=== PATIENT | male | born 1970 | race Caucasian/White ===

== ENCOUNTER 2018-09-28 06:06 | Inpatient (IN) | payer SELFPAY ==
[2018-09-28] MEDS ORDERED: NORMAL SALINE 1000 ML 1,000 ML IV ONE ×3 (07:30→15:20)
--- NOTE | 2018-09-28 07:33 | ER Document Report ---
ED Medical Screen (RME) - General Chief Complaint: Abdominal Pain Stated Complaint: ABDOMINAL AND BACK PAIN Time Seen by Provider: 09/28/18 07:26 Notes: 48-year-old male with chief complaint of abdominal pain for the past 2 almost 3 days. He states that when it started he also had a fever of 101 F. He states pain is in the mid to lower right abdomen with radiation around to the back and the lower part of the back. He denies history of kidney stones, denies hematuria, denies dysuria. Pain worsens with eating. Denies any abdominal surgeries or diagnosed medical problems. TRAVEL OUTSIDE OF THE [place] IN LAST 30 DAYS: No Physical Exam - Vital signs Vitals: Temp Pulse Resp BP Pulse Ox 97.9 F 102 H 16 142/88 H 98 09/28/18 06:16 09/28/18 06:16 09/28/18 06:16 09/28/18 06:16 09/28/18 06:16 - Abdominal Tenderness: Tender - Tender throughout the abdomen in the epigastric, right upp er quadrant, mid abdomen, mildly in the lower abdomen. Nonspecific. No guarding or rigidity. Course - Re-evaluation Re-evalutation: Nonspecific abdominal exam with some tenderness but without guarding. Nontoxic in appearance. Work-up pending. I have greeted and performed a rapid initial assessment of this patient. A comprehensive ED assessment and evaluation of the patient, analysis of test results and completion of the medical decision making process will be conducted by additional ED providers. - Vital Signs Vital signs: Temp Pulse Resp BP Pulse Ox 97.9 F 102 H 16 142/88 H 98 09/28/18 06:16 09/28/18 06:16 09/28/18 06:16 09/28/18 06:16 09/28/18 06:16
--- NOTE | 2018-09-28 08:02 | ER Document Report ---
ED GI/ - General Chief Complaint: Abdominal Pain Stated Complaint: ABDOMINAL AND BACK PAIN Time Seen by Provider: 09/28/18 07:26 Notes: 48-year-old male with chief complaint of abdominal pain for the past 2 almost 3 days. He states that when it started he also had a fever of 101 F. He states pain is in the mid to lower right abdomen with radiation around to the back and the lower part of the back. He denies history of kidney stones, denies hematuria, denies dysuria. Pain worsens with eating. Denies any abdominal surgeries or diagnosed medical problems. Describes the pain as achy and rates it as severe. Nothing else makes better or worse TRAVEL OUTSIDE OF THE [place] IN LAST 30 DAYS: No - Related Data Allergies/Adverse Reactions: No Known Allergies Allergy (Unverified 09/28/18 10:51) Past Medical History - Social History Smoking Status: Unknown if Ever Smoked Family History: None Review of Systems - Review of Systems Constitutional: denies: Chills, Fever EENT: denies: Throat pain Cardiovascular: denies: Chest pain, Dyspnea Gastrointestinal: Abdominal pain, Nausea. denies: Diarrhea, Vomiting Neurological/Psychological: denies: Headaches, Tingling -: Yes All other systems reviewed and negative Physical Exam - Vital signs Vitals: Temp Pulse Resp BP Pulse Ox 97.9 F 102 H 16 142/88 H 98 09/28/18 06:16 09/28/18 06:16 09/28/18 06:16 09/28/18 06:16 09/28/18 06:16 - Notes Notes: GENERAL_APPEARANCE: well_nourished, alert, cooperative VITALS: reviewed, see vital signs table. HEAD: no_swelling\tenderness on the head. EYES: PERRL, EOMI, conjunctiva_clear. NOSE: no_nasal_discharge. MOUTH: (-)decreased moisture. THROAT: no_tonsilar_inflammation, no_airway_obstruction. no_lymphadenopathy NECK: supple, no_neck_tenderness, (-)thyromegaly. BACK: Right CVA_back_tenderness. CHEST_WALL: no_chest_tenderness. LUNGS: no_wheezing, no_rales, no_rhonchi, (-)accessory muscle use, good air exchange bilateral. HEART: normal_rate, normal_rhythm, normal_S1, normal_S2, (-)S3, (-)S4, no_murmur, no_rub. ABDOMEN: normal_BS, soft, lower quadrant_abd_tenderness, (-)guarding, (- )rebound, no_organomegaly, no_abd_masses. EXTREMITIES: good pulses in all_extremities, no_swelling\tenderness in the extremities, no_edema. SKIN: warm, dry, good_color, no_rash. MENTAL_STATUS: speech_clear, oriented_X_3, normal_affect, responds_appropriately to questions. NEURO: Neg Motor or Sensory Deficits on exam, CN 2-12 intact, DTR 2+ symmetric x 4, No cerbellar signs Course - Re-evaluation Re-evalutation: 09/28/18 08:01 48-year-old male presents the emerge from with right-sided abdominal pain. Patient stated goes from his right flank to his right lower quadrant and back. He has no history of stones denies hematuria or dysuria. Did have a fever 101 at home. Has had chills. Some nausea denies vomiting. Full work-up for pyelonephritis versus stone versus appendicitis. 09/28/18 10:36 CT is reported free air. There is some thickening along the duodenum concerning for perforated duodenal ulcer. I will consult surgery. Patient was given broad-spectrum antibiotics. We will give a dose of Protonix. 09/28/18 12:41 On-call surgeon was in OR all morning. He is coming to evaluate the patient. Patient remained stable at this time. 09/28/18 14:08 The patient ate a candy bar prior to surgical evaluation. He was n.p.o. Surgery has the patient drinking contrast. - Vital Signs Vital signs: Temp Pulse Resp BP Pulse Ox 98.2 F 73 16 112/66 96 09/28/18 10:58 09/28/18 10:58 09/28/18 10:58 09/28/18 10:58 09/28/18 10:58 - Laboratory Result Diagrams: 09/28/18 08:06 09/28/18 08:06 Laboratory results interpreted by me: 09/28/18 09/28/18 09/28/18 07:44 08:06 08:06 WBC 16.5 H Seg Neutrophils % 82.8 H Lymphocytes % 9.5 L Absolute Neutrophils 13.6 H Sodium 136.4 L Chloride 96 L BUN 22 H Direct Bilirubin 0.5 H Lipase 576.8 H Urine Protein 100 H Urine Blood MODERATE H Urine Urobilinogen 2.0 H - Diagnostic Test Radiology reviewed: Reports reviewed Radiology results interpreted by me: 09/28/18 10:36 Abdomen/Pelvis CT 09/28/18 07:59 IMPRESSION: Retroperitoneal air. Mild thickening of the duodenum suspect perforated duodenum ulcer. No focal abscess. Discharge - Discharge Clinical Impression: Perforated abdominal viscus Condition: Fair Disposition: ADMITTED INPATIENT Admitting Provider: Surgicalist Unit Admitted: OR
[2018-09-28 08:05] LABS: APPEARANCE,URINE CLEAR; BILIRUBIN,URINE NEGATIVE (NEGATIVE); COLOR,URINE YELLOW; GLUCOSE, URINE NEGATIVE (NEGATIVE); KETONES,URINE NEGATIVE (NEGATIVE); LEUKOCYTE ESTERASE,URINE NEGATIVE (NEGATIVE); NITRITE,URINE NEGATIVE (NEGATIVE); PROTEIN,URINE 100 mg/dL (NEGATIVE); URINE SPECIFIC GRAVITY 1.018
[2018-09-28 08:27] LABS: ABSOLUTE BASOPHILS # (AUTO) 0.2 10^3/uL (0.0-0.2); ABSOLUTE EOSINOPHILS # (AUTO) 0.1 10^3/uL (0.0-0.6); ABSOLUTE LYMPHOCYTES (AUTO) 1.6 10^3/uL (0.5-4.7); ABSOLUTE NEUT (AUTO) 13.6 10^3/uL (1.7-8.2); EOSINOPHILS % (AUTO) 0.5 % (0-6); HEMATOCRIT 42.1 % (37.9-51.0); HEMOGLOBIN 14.4 g/dL (13.5-17.0); LYMPHOCYTES % (AUTO) 9.5 % (13-45); MEAN CORPUSCULAR HEMOGLOBIN 27.5 pg (27.0-33.4); MEAN CORPUSCULAR HGB CONC 34.1 g/dL (32.0-36.0); MEAN CORPUSCULAR VOLUME 81 fl (80-97); MONOCYTES % (AUTO) 6.2 % (3-13); PLATELET COUNT 244 10^3/uL (150-450); RED BLOOD COUNT 5.22 10^6/uL (4.35-5.55); RED CELL DISTRIBUTION WIDTH 13.8 % (11.5-14.0); SEGMENTED NEUTROPHILS % (AUTO) 82.8 % (42-78); TOTAL CELLS COUNTED % (AUTO) 100 %; WHITE BLOOD COUNT 16.5 10^3/uL (4.0-10.5)
[2018-09-28 08:50] LABS: ALANINE AMINOTRANSFERASE 28 U/L (21-72); ALBUMIN 3.6 g/dL (3.5-5.0); ALKALINE PHOSPHATASE 82 U/L (38-126); ANION GAP 11 (5-19); ASPARTATE AMINO TRANSFERASE 25 U/L (17-59); BILIRUBIN,DIRECT 0.5 mg/dL (0.0-0.4); BILIRUBIN,TOTAL 0.9 mg/dL (0.2-1.3); BLOOD UREA NITROGEN 22 mg/dL (7-20); CALCIUM 8.7 mg/dL (8.4-10.2); CARBON DIOXIDE 29 mmol/L (22-30); CHLORIDE 96 mmol/L (98-107); GLUCOSE 102 mg/dL (75-110); POTASSIUM 3.9 mmol/L (3.6-5.0); TOTAL PROTEIN 6.7 g/dL (6.3-8.2)
[2018-09-28] MEDS ORDERED: PIPERACILLIN/TAZOBACTAM 3.375 GM VIAL IV ONE (09:19)
--- NOTE | 2018-09-28 10:27 | RADIOLOGY REPORT (SQ) ---
EXAM DESCRIPTION: CT ABD/PELVIS NO ORAL OR IV COMPLETED DATE/TIME: 09/28/2018 9:03 am REASON FOR STUDY: abd pain COMPARISON: None. TECHNIQUE: CT scan of the abdomen and pelvis performed without intravenous or oral contrast. Images reviewed with lung, soft tissue, and bone windows. Reconstructed coronal and sagittal MPR images revi ewed. All images stored on PACS. All CT scanners at this facility use dose modulation, iterative reconstruction, and/or weight based d osing when appropriate to reduce radiation dose to as low as reasonably achievable (ALARA). [facility]: Dose Right [facility]: CareDose [facility]: Dose Right [facility]: Teradose 4D [facility]: Smart [employer] RADIATION DOSE: CT Rad equipment meets quality standard of care and radiation dose reduction techniq ues were employed. CTDIvol: 9.9 mGy. DLP: 568 mGy-cm.mGy. LIMITATIONS: None. FINDINGS: LOWER CHEST: No significant findings. No nodules or infiltrates. NON-CONTRASTED LIVER, SPLEEN, ADRENALS: Evaluation limited by lack of IV contrast. No identified sign ificant masses. PANCREAS: No masses. No peripancreatic inflammatory changes. GALLBLADDER: No identified stones by CT criteria. No inflammatory changes to suggest cholecystitis. RIGHT KIDNEY AND URETER: No suspicious masses. Assessment limited by lack of IV contrast. There is a small nonobstructing right renal stone. No hydronephrosis or hydroureter. LEFT KIDNEY AND URETER: No suspicious masses. Assessment limited by lack of IV contrast. No signifi cant calcifications. No hydronephrosis or hydroureter. AORTA AND RETROPERITONEUM: Aorta is unremarkable in appearance there is retroperitoneal air. There i s inflammation surrounding the duodenum suspect perforated duodenum ulcer. No focal fluid collection . BOWEL AND PERITONEAL CAVITY: As above. Scattered diverticuli. No acute diverticulitis. APPENDIX: Normal. PELVIS, BLADDER, AND ABDOMINAL WALL:No abnormal masses. No free fluid. Bladder normal. BONES: No significant findings. OTHER: No other significant finding. IMPRESSION: Retroperitoneal air. Mild thickening of the duodenum suspect perforated duodenum ulcer. No focal abscess. COMMENT: Pertinent findings on the imaging study reported as a CRITICAL RESULT to DAVID DUARTE MD [id number] hours. On 09/28/2018. Category of Critical Result: Retroperitoneal air. Quality ID # [id number]: Final reports with documentation of one or more dose reduction techniques (e.g., Au tomated exposure control, adjustment of the mA and/or kV according to patient size, use of iterative reconstruction technique) TECHNICAL DOCUMENTATION: JOB ID: [id number] [employer]- All Rights Reserved Reading location - IP/workstation name: [email or web address]
[2018-09-28] MEDS ORDERED: PANTOPRAZOLE SODIUM 40 MG VIAL IV ONE (10:37)
[2018-09-28] MEDS ORDERED: ONDANSETRON HCL INJ/PF 4 MG/2 ML SDV IV PRN (14:18)
--- NOTE | 2018-09-28 14:24 | PDOC H&P ---
History of Present Illness Admission Date/PCP: September 28, 2018 Patient complains of: Abdominal pain History of Present Illness: ANITA LIANG is a 48 year old male Patient presents to the emergency department with a 3-day history of abdominal pain, anorexia and bloating. Pain started in the right lower quadrant is persisted but spread somewhat to the epigastric region. Because of persisting pain the patient was seen in the emergency department after arriving by ground rescue. Patient is found to have right lower quadrant tenderness. He had a leukocytosis of 16,000. He underwent CT scan of the abdomen and pelvis without oral and without IV contrast which showed retroperitoneal air. Surgery was consulted for possible visceral perforation. Patient initially wanted to go home but we encouraged him to stay for further evaluation. Once evaluated, the patient was advised admission, and informed he may require exploratory surgery. Past Medical History Medical History: None Past Surgical History Past Surgical History: None Social History Smoking Status: Unknown if Ever Smoked Family History Family History: None Parental Family History Reviewed: Yes Children Family History Reviewed: Yes Sibling(s) Family History Reviewed.: Yes Medication/Allergy Allergies/Adverse Reactions: No Known Allergies Allergy (Unverified 09/28/18 10:51) Review of Systems Constitutional: PRESENT: as per HPI Eyes: ABSENT: visual disturbances Ears: ABSENT: hearing changes Cardiovascular: ABSENT: chest pain, dyspnea on exertion, edema, orthropnea, palpitations Respiratory: ABSENT: cough, hemoptysis Gastrointestinal: PRESENT: as per HPI Genitourinary: ABSENT: dysuria, hematuria Musculoskeletal: ABSENT: joint swelling Integumentary: ABSENT: rash, wounds Neurological: ABSENT: abnormal gait, abnormal speech, confusion, dizziness, focal weakness, syncope Hematologic/Lymphatic: ABSENT: easy bleeding, easy bruising Physical Exam Vital Signs: Temp Pulse Resp BP Pulse Ox 98.2 F 73 16 112/66 96 09/28/18 10:58 09/28/18 10:58 09/28/18 10:58 09/28/18 10:58 09/28/18 10:58 Intake & Output 09/27/18 09/28/18 09/29/18 06:59 06:59 06:59 Intake Total 1999 Balance 1999 Weight 86.4 kg Patient got up to move around in the room, then laid down on the gurney per request General appearance: PRESENT: mild distress Head exam: PRESENT: normocephalic Eye exam: PRESENT: EOMI Mouth exam: PRESENT: dry mucosa Neck exam: PRESENT: full ROM Respiratory exam: PRESENT: clear to auscultation herb Cardiovascular exam: PRESENT: RRR, rubs Pulses: PRESENT: normal carotid pulses, normal radial pulses, normal femoral pulses, normal dorsalis pedis pul GI/Abdominal exam: PRESENT: other - Abdomen is soft, minimally distended. There is guarding in the periumbilical region: Patient has some back tenderness. Extremities exam: PRESENT: full ROM Musculoskeletal exam: PRESENT: ambulatory Neurological exam: PRESENT: awake, oriented to person, oriented to place Psychiatric exam: PRESENT: appropriate affect Results Laboratory Results: 09/28/18 08:06 09/28/18 08:06 09/28/18 09/28/18 09/28/18 07:44 08:06 08:06 WBC 16.5 H RBC 5.22 Hgb 14.4 Hct 42.1 MCV 81 MCH 27.5 MCHC 34.1 RDW 13.8 Plt Count 244 Seg Neutrophils % 82.8 H Lymphocytes % 9.5 L Monocytes % 6.2 Eosinophils % 0.5 Basophils % 1.0 Absolute Neutrophils 13.6 H Absolute Lymphocytes 1.6 Absolute Monocytes 1.0 Absolute Eosinophils 0.1 Absolute Basophils 0.2 Sodium 136.4 L Potassium 3.9 Chloride 96 L Carbon Dioxide 29 Anion Gap 11 BUN 22 H Creatinine 0.82 Est GFR ( Amer) > 60 Est GFR (Non-Af Amer) > 60 Glucose 102 Calcium 8.7 Total Bilirubin 0.9 AST 25 ALT 28 Alkaline Phosphatase 82 Total Protein 6.7 Albumin 3.6 Lipase 576.8 H Urine Color YELLOW Urine Appearance CLEAR Urine pH 5.0 Ur Specific [place] 1.018 Urine Protein 100 H Urine Glucose (UA) NEGATIVE Urine Ketones NEGATIVE Urine Blood MODERATE H Urine Nitrite NEGATIVE Ur Leukocyte Esterase NEGATIVE Urine WBC (Auto) 2 Urine RBC (Auto) 5 Impressions: Abdomen/Pelvis CT 09/28/18 07:59 IMPRESSION: Retroperitoneal air. Mild thickening of the duodenum suspect perforated duodenum ulcer. No focal abscess. Assessment & Plan - Diagnosis (1) Perforated abdominal viscus Is this a current diagnosis for this admission?: Yes Plan: Impression: Findings are most consistent with a acute perforated viscus based on CT scan findings moderate to extensive amount of retroperitoneal free air, and leukocytosis; currently the patient looks quite well and belies findings on imaging. Etiologies include perforated ulcer disease, perforated retro- peritoneal sigmoid diverticulum or perforated appendicitis. Recommendations: 1. We will admit to surgical service, keep n.p.o. on IV fluids and intravenous antibiotics empirically. 2. We will have patient drink oral contrast and repeat CT scan of the abdomen and pelvis to further delineate pathoanatomy. I explained to patient he may require exploratory surgery. - Time Time Spent: 50 to 70 Minutes Critical Time spent with patient: 15-24 minutes Medications reviewed and adjusted accordingly: Yes Anticipated discharge: Home - Inpatient Certification Based on my medical assessment, after consideration of the patient's comorbidities, presenting symptoms, or acuity I expect that the services needed warrant INPATIENT care.: Yes I certify that my determination is in accordance with my understanding of Medicare's requirements for reasonable and necessary INPATIENT services [42 CFR 412.3e].: Yes Medical Necessity: Need For IV Fluids, Need for Pain Control, Need for IV Antibiotics, Need for Surgery
--- NOTE | 2018-09-28 17:54 | RADIOLOGY REPORT (SQ) ---
EXAM DESCRIPTION: CT ABD/PELVIS WITH IV ORAL COMPLETED DATE/TIME: 09/28/2018 4:25 pm REASON FOR STUDY: free in abdomen COMPARISON: 09/28/2018 TECHNIQUE: CT scan of the abdomen and pelvis performed using helical scanning technique with dynamic intravenous contrast injection. Oral contrast. Images reviewed with lung, soft tissue, and bone win dows. Reconstructed coronal and sagittal MPR images reviewed. Delayed images for evaluation of the ur inary system also acquired. All images stored on PACS. All CT scanners at this facility use dose modulation, iterative reconstruction, and/or weight based d osing when appropriate to reduce radiation dose to as low as reasonably achievable (ALARA). [facility]: Dose Right [facility]: CareDose [facility]: Dose Right [facility]: Teradose 4D [facility]: STYLHUNT CONTRAST TYPE AND DOSE: contrast/concentration: Isovue 350.00 mg/ml; Total Contrast Delivered: 98.0 ml; Total Saline Delivered: 72.0 ml RENAL FUNCTION: BUN 20 creatinine 0.82 RADIATION DOSE: CT Rad equipment meets quality standard of care and radiation dose reduction techniq ues were employed. CTDIvol: 11.3 - 15.8 mGy. DLP: 1506 mGy-cm.. LIMITATIONS: None. FINDINGS: LOWER CHEST: No significant findings. No nodules or infiltrates. LIVER: Normal size. No masses. No dilated ducts. SPLEEN: Normal size. No focal lesions. PANCREAS: No masses. No significant calcifications. No adjacent inflammation or peripancreatic fluid collections. Pancreatic duct not dilated. GALLBLADDER: No identified stones by CT criteria. No inflammatory changes to suggest cholecystitis. ADRENAL GLANDS: No significant masses or asymmetry. RIGHT KIDNEY AND URETER: No solid masses. No significant calcifications. No hydronephrosis or hyd roureter. LEFT KIDNEY AND URETER: No solid masses. No significant calcifications. No hydronephrosis or hydr oureter. AORTA AND VESSELS: No aneurysm. No dissection. Renal arteries, SMA, celiac without stenosis. RETROPERITONEUM: Once again there is to retroperitoneal free air. Inflammatory changes are suggested in the duodenum. The free air extends cephalad to the region of the gastroesophageal junction. BOWEL AND PERITONEAL CAVITY: There is no bowel obstruction. There are inflammatory changes associate d with the sigmoid colon. APPENDIX: Not identified. PELVIS: No mass. No free fluid. Normal bladder. ABDOMINAL WALL: No masses. No hernias. BONES: No significant or acute findings. OTHER: No other significant finding. IMPRESSION: Retroperitoneal free air. Possible etiologies: Perforated duodenal ulcer, distal esoph ageal rupture, or perforated sigmoid diverticulitis. TECHNICAL DOCUMENTATION: JOB ID: [id number] Quality ID # [id number]: Final reports with documentation of one or more dose reduction techniques (e.g., Au tomated exposure control, adjustment of the mA and/or kV according to patient size, use of iterative reconstruction technique) 2010 [employer]- All Rights Reserved Reading location - IP/workstation name: [email or web address]
[2018-09-28] MEDS: RINGERS SOLUTION,LACTATED 1,000 ML IV PRN (18:32)
[2018-09-28] MEDS: PIPERACILLIN SODIUM/TAZOBACTAM 3.375 GM in NORMAL SALINE 100 ML IV SCH (21:55)
[2018-09-29 05:16] LABS: ABSOLUTE BASOPHILS # (AUTO) 0.1 10^3/uL (0.0-0.2); ABSOLUTE EOSINOPHILS # (AUTO) 0.2 10^3/uL (0.0-0.6); ABSOLUTE LYMPHOCYTES (AUTO) 1.7 10^3/uL (0.5-4.7); ABSOLUTE MONOCYTES (AUTO) 0.7 10^3/uL (0.1-1.4); ABSOLUTE NEUT (AUTO) 6.8 10^3/uL (1.7-8.2); BASOPHILS % (AUTO) 0.6 % (0-2); EOSINOPHILS % (AUTO) 2.1 % (0-6); HEMATOCRIT 36.5 % (37.9-51.0); HEMOGLOBIN 12.5 g/dL (13.5-17.0); LYMPHOCYTES % (AUTO) 17.7 % (13-45); MEAN CORPUSCULAR HEMOGLOBIN 27.7 pg (27.0-33.4); MEAN CORPUSCULAR HGB CONC 34.3 g/dL (32.0-36.0); MEAN CORPUSCULAR VOLUME 81 fl (80-97); MONOCYTES % (AUTO) 7.5 % (3-13); PLATELET COUNT 229 10^3/uL (150-450); RED BLOOD COUNT 4.53 10^6/uL (4.35-5.55); RED CELL DISTRIBUTION WIDTH 13.5 % (11.5-14.0); SEGMENTED NEUTROPHILS % (AUTO) 72.1 % (42-78); TOTAL CELLS COUNTED % (AUTO) 100 %; WHITE BLOOD COUNT 9.5 10^3/uL (4.0-10.5)
[2018-09-29] MEDS: PIPERACILLIN SODIUM/TAZOBACTAM 3.375 GM in NORMAL SALINE 100 ML IV SCH ×3 (05:38→21:39)
[2018-09-29] MEDS: KETOROLAC TROMETHAMINE INJ/PF 30 MG/1 ML SDV IV PRN ×2 (10:41→23:55)
[2018-09-29] MEDS: RINGERS SOLUTION,LACTATED 1,000 ML IV PRN ×2 (10:42→21:39)
[2018-09-29] MEDS: PANTOPRAZOLE SODIUM 40 MG VIAL IV SCH ×2 (13:12→21:39)
[2018-09-29] MEDS: NICOTINE 21 MG/24 HR PATCH.TD24 TD SCH (13:13)
--- NOTE | 2018-09-29 18:17 | PDOC PROGRESS REPORT ---
Subjective Progress Note for:: 09/29/18 Subjective:: less abdominal pains. More at the LUQ Reason For Visit: PERFRATED ABDOMINAL VISCUS Physical Exam Vital Signs: Temp Pulse Resp BP Pulse Ox 99.1 F 62 19 118/66 97 09/29/18 16:00 09/29/18 16:00 09/29/18 16:00 09/29/18 16:00 09/29/18 16:00 Intake & Output 09/28/18 09/29/18 09/30/18 06:59 06:59 06:59 Intake Total 3100 1200 Balance 3100 1200 Weight 86.4 kg 69.4 kg Exam: abdomen soft with mild tenderness LUQ. Not distended Results Laboratory Results: 09/29/18 04:17 09/28/18 08:06 09/29/18 04:17 WBC 9.5 RBC 4.53 Hgb 12.5 L Hct 36.5 L MCV 81 MCH 27.7 MCHC 34.3 RDW 13.5 Plt Count 229 Seg Neutrophils % 72.1 Lymphocytes % 17.7 Monocytes % 7.5 Eosinophils % 2.1 Basophils % 0.6 Absolute Neutrophils 6.8 Absolute Lymphocytes 1.7 Absolute Monocytes 0.7 Absolute Eosinophils 0.2 Absolute Basophils 0.1 Impressions: Abdomen/Pelvis CT 09/28/18 07:59 IMPRESSION: Retroperitoneal air. Mild thickening of the duodenum suspect perforated duodenum ulcer. No focal abscess. Assessment & Plan - Diagnosis (1) free air retroperitoneal area Is this a current diagnosis for this admission?: Yes - Time Time Spent with patient: 15-24 minutes - Inpatient Certification Medical Necessity: Need For IV Fluids, Need for IV Antibiotics - Plan Summary Plan Summary: Since possible source of retroperitoneal free air is from Duodenal perforation or sigmoid perforation. An attempt to place NGT was done if perf from Dudenal ulcer however, patient unable to tolerate placement. Will keep him NPO for now and hydrate. Continue IV antibiotics Had CT with po contrast which did not show duodenal perforation Repeat WBC is now normal Will repeat again in am
[2018-09-30] MEDS: PIPERACILLIN SODIUM/TAZOBACTAM 3.375 GM in NORMAL SALINE 100 ML IV SCH ×3 (06:14→21:52)
[2018-09-30 06:33] LABS: ABSOLUTE BASOPHILS # (AUTO) 0.1 10^3/uL (0.0-0.2); ABSOLUTE EOSINOPHILS # (AUTO) 0.2 10^3/uL (0.0-0.6); ABSOLUTE LYMPHOCYTES (AUTO) 1.5 10^3/uL (0.5-4.7); ABSOLUTE MONOCYTES (AUTO) 0.7 10^3/uL (0.1-1.4); ABSOLUTE NEUT (AUTO) 6.3 10^3/uL (1.7-8.2); BASOPHILS % (AUTO) 0.7 % (0-2); EOSINOPHILS % (AUTO) 2.3 % (0-6); HEMATOCRIT 38.1 % (37.9-51.0); HEMOGLOBIN 13.1 g/dL (13.5-17.0); LYMPHOCYTES % (AUTO) 17.4 % (13-45); MEAN CORPUSCULAR HEMOGLOBIN 27.7 pg (27.0-33.4); MEAN CORPUSCULAR HGB CONC 34.5 g/dL (32.0-36.0); MEAN CORPUSCULAR VOLUME 80 fl (80-97); MONOCYTES % (AUTO) 8.4 % (3-13); PLATELET COUNT 259 10^3/uL (150-450); RED BLOOD COUNT 4.75 10^6/uL (4.35-5.55); RED CELL DISTRIBUTION WIDTH 13.4 % (11.5-14.0); SEGMENTED NEUTROPHILS % (AUTO) 71.2 % (42-78); TOTAL CELLS COUNTED % (AUTO) 100 %; WHITE BLOOD COUNT 8.8 10^3/uL (4.0-10.5)
[2018-09-30] MEDS: RINGERS SOLUTION,LACTATED 1,000 ML IV PRN ×2 (08:49→14:24)
[2018-09-30] MEDS: PANTOPRAZOLE SODIUM 40 MG VIAL IV SCH ×2 (09:29→21:56)
[2018-09-30] MEDS: NICOTINE 21 MG/24 HR PATCH.TD24 TD SCH (09:32)
[2018-09-30] MEDS: KETOROLAC TROMETHAMINE INJ/PF 30 MG/1 ML SDV IV PRN ×2 (10:37→16:45)
--- NOTE | 2018-09-30 19:36 | PDOC PROGRESS REPORT ---
Subjective Progress Note for:: 09/30/18 Subjective:: This is a 48-year-old male admitted with diverticulitis and retroperitoneal air. The patient reports that he is feeling much better today. His lower abdominal pain is improving slowly. He reports that he is passing flatus. He is feeling hungry. He denies chest pain, shortness of breath, fevers, chills, headache, dizziness, orthostasis, blurry vision, fatigue, nausea, vomiting, melena, hematochezia, or hematemesis. He does still experience mild lower abdominal pain. Reason For Visit: PERFRATED ABDOMINAL VISCUS Physical Exam Vital Signs: Temp Pulse Resp BP Pulse Ox 98.4 F 77 18 150/75 H 96 09/30/18 17:54 09/30/18 17:54 09/30/18 17:54 09/30/18 18:17 09/30/18 17:54 Intake & Output 09/29/18 09/30/18 10/01/18 06:59 06:59 06:59 Intake Total 3100 3300 1177 Balance 3100 3300 1177 Weight 69.4 kg 69.5 kg General appearance: PRESENT: no acute distress, cooperative Head exam: PRESENT: atraumatic, normocephalic Eye exam: PRESENT: EOMI, PERRLA, scleral icterus Mouth exam: PRESENT: moist, neck supple Neck exam: ABSENT: meningismus, tenderness, thyromegaly, tracheal deviation Respiratory exam: PRESENT: clear to auscultation herb, unlabored. ABSENT: chest wall tenderness, tachypnea Cardiovascular exam: PRESENT: RRR Pulses: PRESENT: normal radial pulses Vascular exam: PRESENT: normal capillary refill GI/Abdominal exam: PRESENT: soft, tenderness - Minimal lower abdominal te nderness. ABSENT: distended, firm, guarding, rebound, rigid Rectal exam: PRESENT: deferred Extremities exam: ABSENT: clubbing Musculoskeletal exam: ABSENT: deformity Neurological exam: PRESENT: alert, awake, oriented to person, oriented to place, oriented to time, oriented to situation, CN II-XII grossly intact Psychiatric exam: ABSENT: agitated, anxious, depressed Focused psych exam: ABSENT: delusional Skin exam: ABSENT: cyanosis, erythema, jaundice Results Laboratory Results: 09/30/18 05:46 09/28/18 08:06 09/30/18 05:46 WBC 8.8 RBC 4.75 Hgb 13.1 L Hct 38.1 MCV 80 MCH 27.7 MCHC 34.5 RDW 13.4 Plt Count 259 Seg Neutrophils % 71.2 Lymphocytes % 17.4 Monocytes % 8.4 Eosinophils % 2.3 Basophils % 0.7 Absolute Neutrophils 6.3 Absolute Lymphocytes 1.5 Absolute Monocytes 0.7 Absolute Eosinophils 0.2 Absolute Basophils 0.1 Impressions: Abdomen/Pelvis CT 09/28/18 07:59 IMPRESSION: Retroperitoneal air. Mild thickening of the duodenum suspect perforated duodenum ulcer. No focal abscess. Assessment & Plan - Diagnosis (1) Retroperitoneal air Is this a current diagnosis for this admission?: Yes (2) Diverticulitis of sigmoid colon Is this a current diagnosis for this admission?: Yes - Plan Summary Plan Summary: Is a 48-year-old male with evidence of diverticulitis on CT, with retroperitone al air. The patient is improving with intravenous antibiotics. The patient is hungry. He is passing flatus. I will advance his diet today. I have encouraged him to ambulate. Advance to full liquids. DVT prophylaxis. Aggressive pulmonary toilet.
[2018-10-01] MEDS: MORPHINE SULFATE 10 MG/ML INJ IV PRN (00:04)
[2018-10-01] MEDS: PIPERACILLIN SODIUM/TAZOBACTAM 3.375 GM in NORMAL SALINE 100 ML IV SCH ×3 (07:02→21:35)
[2018-10-01] MEDS: PANTOPRAZOLE SODIUM 40 MG VIAL IV SCH ×2 (09:48→21:35)
[2018-10-01] MEDS: NICOTINE 21 MG/24 HR PATCH.TD24 TD SCH (09:48)
[2018-10-01 11:47] LABS: ABSOLUTE BASOPHILS # (AUTO) 0.1 10^3/uL (0.0-0.2); ABSOLUTE EOSINOPHILS # (AUTO) 0.2 10^3/uL (0.0-0.6); ABSOLUTE LYMPHOCYTES (AUTO) 1.7 10^3/uL (0.5-4.7); ABSOLUTE MONOCYTES (AUTO) 0.9 10^3/uL (0.1-1.4); ABSOLUTE NEUT (AUTO) 5.9 10^3/uL (1.7-8.2); BASOPHILS % (AUTO) 1.4 % (0-2); EOSINOPHILS % (AUTO) 1.8 % (0-6); HEMATOCRIT 37.8 % (37.9-51.0); HEMOGLOBIN 13.3 g/dL (13.5-17.0); MEAN CORPUSCULAR HEMOGLOBIN 27.7 pg (27.0-33.4); MEAN CORPUSCULAR HGB CONC 35.1 g/dL (32.0-36.0); MEAN CORPUSCULAR VOLUME 79 fl (80-97); MONOCYTES % (AUTO) 10.1 % (3-13); PLATELET COUNT 284 10^3/uL (150-450); RED BLOOD COUNT 4.79 10^6/uL (4.35-5.55); RED CELL DISTRIBUTION WIDTH 13.3 % (11.5-14.0); SEGMENTED NEUTROPHILS % (AUTO) 67.7 % (42-78); TOTAL CELLS COUNTED % (AUTO) 100 %; WHITE BLOOD COUNT 8.8 10^3/uL (4.0-10.5)
[2018-10-01] MEDS: KETOROLAC TROMETHAMINE INJ/PF 30 MG/1 ML SDV IV PRN (16:58)
--- NOTE | 2018-10-01 18:20 | PDOC PROGRESS REPORT ---
Subjective Progress Note for:: 10/01/18 Subjective:: C/o LUQ pains last night after dinner. Reason For Visit: ACUTE ABDOMEN Physical Exam Vital Signs: Temp Pulse Resp BP Pulse Ox 98.3 F 64 15 142/72 H 98 10/01/18 16:00 10/01/18 16:00 10/01/18 16:00 10/01/18 16:00 10/01/18 16:00 Intake & Output 09/30/18 10/01/18 10/02/18 06:59 06:59 06:59 Intake Total 3300 2395 200 Balance 3300 2395 200 Weight 69.5 kg 68.8 kg Exam: abdomen remains soft with minimal tenderness LUQ Results Laboratory Results: 10/01/18 11:29 09/28/18 08:06 10/01/18 11:29 WBC 8.8 RBC 4.79 Hgb 13.3 L Hct 37.8 L MCV 79 L MCH 27.7 MCHC 35.1 RDW 13.3 Plt Count 284 Seg Neutrophils % 67.7 Lymphocytes % 19.0 Monocytes % 10.1 Eosinophils % 1.8 Basophils % 1.4 Absolute Neutrophils 5.9 Absolute Lymphocytes 1.7 Absolute Monocytes 0.9 Absolute Eosinophils 0.2 Absolute Basophils 0.1 Impressions: Abdomen/Pelvis CT 09/28/18 07:59 IMPRESSION: Retroperitoneal air. Mild thickening of the duodenum suspect perforated duodenum ulcer. No focal abscess. Assessment & Plan - Diagnosis (1) free air retroperitoneal area Is this a current diagnosis for this admission?: Yes - Time Time Spent with patient: 15-24 minutes - Inpatient Certification Medical Necessity: Need For IV Fluids, Need for Pain Control, Need for IV Antibiotics - Plan Summary Plan Summary: WBC this am remains normal Will keep npo today because of incident last night Continue IV antibiotics
[2018-10-02] MEDS: PIPERACILLIN SODIUM/TAZOBACTAM 3.375 GM in NORMAL SALINE 100 ML IV SCH ×3 (05:57→22:00)
[2018-10-02] MEDS: NICOTINE 21 MG/24 HR PATCH.TD24 TD SCH (09:46)
[2018-10-02] MEDS: PANTOPRAZOLE SODIUM 40 MG VIAL IV SCH (09:46)
--- NOTE | 2018-10-02 13:10 | PDOC PROGRESS REPORT ---
Subjective Progress Note for:: 10/02/18 Subjective:: practically no more pains. Has been NPO since yesterday after abdominal pains episode. Passing flatus His WBC yesterday remains normal Reason For Visit: ACUTE ABDOMEN Physical Exam Vital Signs: Temp Pulse Resp BP Pulse Ox 98.1 F 55 L 13 142/75 H 95 10/02/18 11:23 10/02/18 11:23 10/02/18 11:23 10/02/18 11:23 10/02/18 11:23 Intake & Output 10/01/18 10/02/18 10/03/18 06:59 06:59 06:59 Intake Total 2395 400 730 Output Total 0 Balance 2395 400 730 Weight 68.8 kg 70.2 kg Exam: abdomen is soft and non tender Results Laboratory Results: 10/01/18 11:29 09/28/18 08:06 Impressions: Abdomen/Pelvis CT 09/28/18 07:59 IMPRESSION: Retroperitoneal air. Mild thickening of the duodenum suspect perforated duodenum ulcer. No focal abscess. Assessment & Plan - Diagnosis (1) free air retroperitoneal area Is this a current diagnosis for this admission?: Yes - Time Time Spent with patient: 15-24 minutes - Inpatient Certification Medical Necessity: Need For IV Fluids, Need for IV Antibiotics, Risk of Complication if Not Cared For in Hospital - Plan Summary Plan Summary: Resume clears today Continue IV antibiotics
[2018-10-02] MEDS: MORPHINE SULFATE 10 MG/ML INJ IV PRN (20:21)
[2018-10-03] MEDS: PIPERACILLIN SODIUM/TAZOBACTAM 3.375 GM in NORMAL SALINE 100 ML IV SCH ×2 (06:05→13:57)
[2018-10-03 06:08] LABS: ABSOLUTE BASOPHILS # (AUTO) 0.1 10^3/uL (0.0-0.2); ABSOLUTE EOSINOPHILS # (AUTO) 0.2 10^3/uL (0.0-0.6); ABSOLUTE LYMPHOCYTES (AUTO) 2.2 10^3/uL (0.5-4.7); ABSOLUTE MONOCYTES (AUTO) 0.8 10^3/uL (0.1-1.4); ABSOLUTE NEUT (AUTO) 6.3 10^3/uL (1.7-8.2); EOSINOPHILS % (AUTO) 2.5 % (0-6); HEMATOCRIT 38.9 % (37.9-51.0); HEMOGLOBIN 13.4 g/dL (13.5-17.0); LYMPHOCYTES % (AUTO) 22.8 % (13-45); MEAN CORPUSCULAR HEMOGLOBIN 27.4 pg (27.0-33.4); MEAN CORPUSCULAR HGB CONC 34.5 g/dL (32.0-36.0); MEAN CORPUSCULAR VOLUME 79 fl (80-97); MONOCYTES % (AUTO) 7.9 % (3-13); PLATELET COUNT 307 10^3/uL (150-450); RED CELL DISTRIBUTION WIDTH 13.4 % (11.5-14.0); SEGMENTED NEUTROPHILS % (AUTO) 65.8 % (42-78); TOTAL CELLS COUNTED % (AUTO) 100 %; WHITE BLOOD COUNT 9.6 10^3/uL (4.0-10.5)
[2018-10-03] MEDS: NICOTINE 21 MG/24 HR PATCH.TD24 TD SCH (10:33)
[2018-10-03] MEDS: RINGERS SOLUTION,LACTATED 1,000 ML IV PRN (12:19)
[2018-10-03] MEDS: KETOROLAC TROMETHAMINE INJ/PF 30 MG/1 ML SDV IV PRN (12:30)
--- NOTE | 2018-10-03 17:24 | PDOC PROGRESS REPORT ---
Subjective Progress Note for:: 10/03/18 Subjective:: This is a 48-year-old male admitted with diverticulitis and retroperitoneal air. The patient reports that he is feeling better again today. His lower abdominal pain has almost resolved. He reports that he is passing flatus. He is tolerating liquids. He denies chest pain, shortness of breath, fevers, chills, headache, dizziness, orthostasis, blurry vision, fatigue, nausea, vomiting, melena, hematochezia, or hematemesis. Reason For Visit: ACUTE ABDOMEN Physical Exam Vital Signs: Temp Pulse Resp BP Pulse Ox 98.6 F 57 L 17 126/74 H 96 10/03/18 12:25 10/03/18 12:25 10/03/18 12:25 10/03/18 12:25 10/03/18 12:25 Intake & Output 10/02/18 10/03/18 10/04/18 06:59 06:59 06:59 Intake Total 400 2030 760 Output Total 0 Balance 400 2030 760 Weight 70.2 kg 68.3 kg General appearance: PRESENT: no acute distress, cooperative. ABSENT: disheveled Head exam: PRESENT: atraumatic, normocephalic Eye exam: PRESENT: EOMI, PERRLA. ABSENT: scleral icterus Mouth exam: PRESENT: moist, neck supple Neck exam: ABSENT: meningismus, tenderness, thyromegaly, tracheal deviation Respiratory exam: PRESENT: unlabored. ABSENT: chest wall tenderness, tachypnea, wheezes Cardiovascular exam: PRESENT: RRR Pulses: PRESENT: normal radial pulses GI/Abdominal exam: PRESENT: soft. ABSENT: distended, firm, guarding, tenderness Rectal exam: PRESENT: deferred Extremities exam: ABSENT: clubbing Musculoskeletal exam: ABSENT: deformity Neurological exam: PRESENT: alert, awake, oriented to person, oriented to place, oriented to time, oriented to situation, CN II-XII grossly intact. ABSENT: motor sensory deficit Psychiatric exam: ABSENT: agitated, anxious, depressed Focused psych exam: ABSENT: delusional Skin exam: ABSENT: cyanosis, erythema, jaundice Results Laboratory Results: 10/03/18 05:37 09/28/18 08:06 10/03/18 05:37 WBC 9.6 RBC 4.90 Hgb 13.4 L Hct 38.9 MCV 79 L MCH 27.4 MCHC 34.5 RDW 13.4 Plt Count 307 Seg Neutrophils % 65.8 Lymphocytes % 22.8 Monocytes % 7.9 Eosinophils % 2.5 Basophils % 1.0 Absolute Neutrophils 6.3 Absolute Lymphocytes 2.2 Absolute Monocytes 0.8 Absolute Eosinophils 0.2 Absolute Basophils 0.1 Impressions: Abdomen/Pelvis CT 09/28/18 07:59 IMPRESSION: Retroperitoneal air. Mild thickening of the duodenum suspect perforated duodenum ulcer. No focal abscess. Assessment & Plan - Diagnosis (1) Retroperitoneal air Is this a current diagnosis for this admission?: Yes (2) Diverticulitis of sigmoid colon Is this a current diagnosis for this admission?: Yes - Plan Summary Plan Summary: Is a 48-year-old male with evidence of diverticulitis on CT, with retroperitoneal air. The patient is improving with intravenous antibiotics. He is tolerating liquids. He is passing flatus. I will advance his diet today. I have encouraged him to ambulate. Advance to regular diet. DVT prophylaxis. Aggressive pulmonary toilet.
[2018-10-03 18:38] VITALS: BP 118/66
--- NOTE | 2018-10-04 07:28 | PDOC DISCHARGE SUMMARY ---
General - Admit/Disc Date/PCP Admission Date/Primary Care Provider: 09/28/18 14:31 Discharge Date: 10/03/18 - Discharge Diagnosis (1) Retroperitoneal air Is this a current diagnosis for this admission?: Yes (2) Diverticulitis of sigmoid colon Is this a current diagnosis for this admission?: Yes - Additional Information Resuscitation Status: Full Code Discharge Diet: As Tolerated Discharge Activity: Activity As Tolerated Home Medications: No Home Medications 09/28/18 History of Present Illness History of Present Illness: ANITA LIANG is a 48 year old male who presented to the emergency department with abdominal pain. The patient was found to have retroperitoneal air on CT scan with inflammation in and around the sigmoid colon. Differential included perforated sigmoid diverticulitis to the retroperitoneum, as well as perforated duodenal ulcer. Patient was admitted to the hospital, started on antibiotics, and serial abdominal exams were performed. Hospital Course Hospital Course: The patient was admitted to the floor and his symptoms improved. He was maintained on intravenous antibiotics. The patient began tolerating a diet, ambulating, and by 10/03/2018, he had reached maximal hospital benefit and was fit for discharge. Physical Exam Vital Signs: Temp Pulse Resp BP Pulse Ox 98.8 F 70 17 118/66 96 10/03/18 18:37 10/03/18 18:37 10/03/18 18:37 10/03/18 18:37 10/03/18 18:37 Intake & Output 10/03/18 10/04/18 10/05/18 06:59 06:59 06:59 Intake Total 2030 760 Balance 2030 760 Weight 68.3 kg Results Laboratory Results: 10/03/18 05:37 09/28/18 08:06 Impressions: Abdomen/Pelvis CT 09/28/18 07:59 IMPRESSION: Retroperitoneal air. Mild thickening of the duodenum suspect perforated duodenum ulcer. No focal abscess. Qualifiers - * PATIENT BEING DISCHARGED WITH ANY OF THE FOLLOWING DIAGNOSIS: No Acute Heart Failure - Is this a Heart Failure Patient?: No Plan Discharge Plan: Discharge home. Diet as tolerated. Activity: Nonstrenuous. Follow-up with [facility] in 7 to 10 days. Continue oral antibiotics at home as written. Time Spent: Less than 30 Minutes
== END 2018-10-03 19:05 | disposition home or self-care (01) | DRG 394 ==
LOC: ER 06:06 → EH 14:31 → INTOOBSV 14:31 → OBSVTOIN 14:31 → 5 16:49
PROVIDERS: ADMIT Surgery; ATTEND Surgery
DX: K66.8 Other specified disorders of peritoneum (principal); K57.32 Diverticulitis of large intestine without perforation or abscess without bleeding; D72.829 Elevated white blood cell count, unspecified
CPT/HCPCS: 36415; 74176; 74177; 80053; 81001; 83690; 85025; 96361; 96365; 96375; 99285; G0378; J1885; J2270; J2543; J7030; J7050; J7120; S0164